=== PATIENT | male | born 1950 | race Caucasian/White ===

== ENCOUNTER 2018-02-05 15:38 | Emergency (ER) | payer MEDICARE, BC, SELFPAY ==
[2018-02-05] VITALS (7 sets, daily range): BP systolic 117–138; BP diastolic 68–86; PULSE 59–84; RESP 9–18; TEMP 36.1; O2SAT 95–99; BMI 34.5
--- NOTE | 2018-02-05 15:58 | ED.WEAKNESS ---
HPI - Weakness General Chief complaint: Weakness Stated complaint: Wants to make sure he isnt having a heart attack Time Seen by Provider: 02/05/18 15:57 Source: patient Mode of arrival: ambulatory Limitations: no limitations History of Present Illness HPI Narrative: 67-year-old male who is a [id number]-[id number] diabetic here for evaluation of not feeling well. 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 He states that he went to wash his car and as he was finishing washing his car he had vague symptoms of lightheadedness, headache flushing diaphoresis and nausea. States that he went inside and laid down and slept for several hours and when he woke up many of the symptoms had improved except he still did not feel very well. Denies any chest pain or shortness of breath. Came into the emergency department for evaluation Related Data Home Medications Medication Instructions Recorded Confirmed ASPIRIN (Aspirin) 324 mg PO Q DAY #0 06/08/10 CHOLECALCIFEROL (VITAMIN D3) #0 06/08/10 (Vitamin D3) MULTIVITAMIN/MINERALS (Thera M 0 PO Q DAY #0 06/08/10 Plus Tablet) [GLUCOSOMINE] #0 06/08/10 [SAW PALMETTO] #0 06/08/10 acetaminophen [Acephen] #0 01/26/17 atorvastatin [Lipitor] 20 mg PO QDAY #0 01/26/17 lisinopril 2.5 mg PO QDAY #0 01/26/17 metformin [Glucophage XR] 500 mg PO QDAY #0 01/26/17 Allergies Allergy/AdvReac Type Severity Reaction Status Date / Time INGREDIENT: NKDA - NO KNOWN Allergy Unknown Uncoded 02/05/18 15:45 DRUG ALLERGIES Review of Systems Constitutional Denies chills, Denies fever(s), Reports headache(s), Denies lethargy and Denies weakness Comments: Sweating Eyes Denies loss of vision ENT Ears, Nose, Mouth, and Throat: Reports headache(s) Cardiovascular Denies chest pain, Denies irregular heart rhythm, Denies lightheadedness, Denies palpitations, Denies dyspnea, Denies dyspnea on exertion and Denies orthopnea Respiratory Denies cough, Denies dyspnea, Denies dyspnea on exertion and Denies wheezing Gastrointestinal Gastrointestinal: Denies abdominal pain, Denies change in bowel habits, Denies diarrhea, Reports nausea and Denies vomiting Musculoskeletal Denies abnormal gait, Denies back pain, Denies muscle weakness, Denies numbness and Denies tingling Integumentary/Breasts Denies pruritus, Denies erythema, Denies rash and Denies wounds Comments: Flushing of the skin Neurologic Denies abnormal gait, Reports headache(s), Denies focal weakness, Denies loss of vision, Denies numbness, Denies tingling and Denies weakness Endocrine Denies palpitations Hematologic/Lymphatic Denies easy bruising Allergic/Immunologic Denies wheezing Exam Const General: cooperative, well developed and No diaphoretic Nutritional Appearance: well nourished and not cachectic Orientation: alert, awake, oriented x3 and not confused Chest Chest: normal inspection of the chest Resp Effort & Inspection: normal respiratory effort, able to speak in complete sentences, no respiratory distress and no use of accessory muscles Auscultation: clear to auscultation bilaterally, no rales, no rhonchi and no wheezes Cardio Rate: regular rate Rhythm: regular rhythm Heart Sounds: no click, no gallops, no murmurs and no rubs Pulses: normal peripheral pulses GI Inspection: non-distended Palpation: soft, no hepatosplenomegaly, No guarding, No pulsatile mass and No tender Auscultation: normal bowel sounds Skin General: no rashes or lesions noted, No jaundice and No petechiae Neuro General: alert, oriented x3, gait normal and no focal motor deficits Speech: speech normal Motor: strength 5/5 throughout Sensory Exam: no sensory deficits noted Extrem General: full ROM, no clubbing, cyanosis or edema, no pedal edema and no calf tenderness MDM - Weakness MDM Narrative Medical decision making narrative: Patient never complained of chest pain. His symptoms were somewhat consistent with a heat injury however was afebrile at the time of arrival. We do not have a temperature at the time when he was at his peak symptoms outside. It was cool this morning when he was working. He states that he did not feel like he overheated. He did take an aspirin prior to arrival. EKG not consistent with ST-elevation IA. Initial troponin was negative. Chest x-ray was negative. Given his history of diabetes and his nonspecific symptoms discussed with the patient the importance of keeping here in the emergency department and doing a repeat troponin. He expressed understanding and agreement. Turn case over to night provider at 1845 to follow up with troponin. Lab Data Attestation: I reviewed the patient's lab results. Result diagrams: 02/05/18 16:35 02/05/18 16:35 Lab Results 02/05/18 02/05/18 Range/Units 16:35 16:35 WBC 5.9 (4.5-11.0) X10^3/uL RBC 4.96 (4.5-5.9) X10^6/uL Hgb 15.7 (13.5-17.5) g/dL Hct 42.9 (41-53) % MCV 86.4 (80-100) fL MCH 31.6 (26-34) PG MCHC 36.5 H (30-36) % RDW 13.8 (11.6-14.8) % Plt Count 167 (150-400) X10^3/uL Neut % (Auto) 68.9 (50-75) % Lymph % (Auto) 22.4 L (25-40) % [place] % (Auto) 5.4 (3-14) % Eos % (Auto) 2.1 (2-4) % Baso % (Auto) 1.2 (0-2) % Neut # (Auto) 4100 (3653-0328) /uL Sodium 140 (137-145) mmol/L Potassium 4.5 (3.4-5.1) mmol/L Chloride 105.0 (98-107) mmol/L Carbon Dioxide 21.0 L (22-32) mmol/L BUN 20.0 (9-20) mg/dL Creatinine 0.90 (0.66-1.25) mg/dL Estimated GFR > 60.0 (>60) mL/min BUN/Creatinine Ratio 22.2 H (6-22) Glucose 176 H (80-110) mg/dL Calcium 9.3 (8.4-10.2) mg/dL Troponin I < 0.012 (0.01-0.034) ng/mL Imaging Data Chest x-ray: Radiologist's impression: PROCEDURE: XR CHEST 1V INDICATIONS: Chest pain TECHNIQUE: One view of the chest was acquired. COMPARISON: None. FINDINGS: Surgical changes and devices: None. Lungs and pleura: No pleural effusions or pneumothorax. There are linear opacities in the left base likely representing atelectasis. Mediastinum: Mediastinal contours appear normal. Heart size is normal. Bones and chest wall: No suspicious bony lesions. Overlying soft tissues appear unremarkable. IMPRESSION: 1. Probable linear atelectasis in the left base and less likely developing consolidation. Dictated by: Aman Watkins M.D. on 02/05/2018 at 16:47 ECG Data Interpretation: Time 1545 hr Sinus rhythm First degree AV block Ventricular rate 81 As needed oval 2-4 milliseconds Normal QRS Normal axis Incomplete right bundle branch block No ST T wave changes Course Orders Ordered: ED Orders 02/05/18 16:29 XR chest 1V Stat 02/05/18 16:35 Basic Metabolic Panel Stat Complete Blood Count AUTO DIFF Stat Troponin I Stat 02/05/18 19:15 Troponin I Stat Discontinued Medications Sodium Chloride (Normal Saline 0.9%) 1,000 mls @ 1,000 mls/hr IV BOLUS ONE Stop: 02/05/18 16:56 Last Infusion: 02/05/18 18:11 Dose: 0 mls/hr Admin: 02/05/18 16:46 Dose: 1,000 mls/hr Ondansetron HCl (Zofran) 4 mg IV NOW ONE Stop: 02/05/18 18:57 Last Admin: 02/05/18 19:00 Dose: 4 mg Last Vital Signs Temp 97.0 F L 02/05/18 15:43 Pulse 64 02/05/18 19:09 Resp 16 02/05/18 19:09 BP 132/68 H 02/05/18 19:09 Pulse Ox 95 02/05/18 19:09 Discharge Plan Departure Prescriptions: No Action ASPIRIN (Aspirin) 324 mg PO Q DAY Qty: 0 RF: 0 CHOLECALCIFEROL (VITAMIN D3) (Vitamin D3) Qty: 0 RF: 0 MULTIVITAMIN/MINERALS (Thera M Plus Tablet) PO Q DAY Qty: 0 RF: 0 [GLUCOSOMINE] Qty: 0 RF: 0 [SAW PALMETTO] Qty: 0 RF: 0 metformin [Glucophage XR] 500 MG tablet extended release 24 hr 500 mg PO QDAY Qty: 0 RF: 0 lisinopril 2.5 MG tablet 2.5 mg PO QDAY Qty: 0 RF: 0 acetaminophen [Acephen] 325 MG suppository Qty: 0 RF: 0 atorvastatin [Lipitor] 20 MG tablet 20 mg PO QDAY Qty: 0 RF: 0
--- NOTE | 2018-02-05 16:29 | DI.RAD.S_ITS ---
PROCEDURE: XR CHEST 1V INDICATIONS: Chest pain TECHNIQUE: One view of the chest was acquired. COMPARISON: None. FINDINGS: Surgical changes and devices: None. Lungs and pleura: No pleural effusions or pneumothorax. There are linear opacities in the left base likely representing atelectasis. Mediastinum: Mediastinal contours appear normal. Heart size is normal. Bones and chest wall: No suspicious bony lesions. Overlying soft tissues appear unremarkable. IMPRESSION: 1. Probable linear atelectasis in the left base and less likely developing consolidation. Dictated by: Aman Watkins M.D. on 02/05/2018 at 16:47 Approved by: Aman Watkins M.D. on 02/05/2018 at 16:48
[2018-02-05] MEDS: SODIUM CHLORIDE 0.9% 1,000 ML 1000 ML IV (16:46)
[2018-02-05 17:01] LABS: BUN Creatinine Ratio 22.2 (6-22); Calcium 9.3 mg/dL (8.4-10.2); Estimated Glomerular Filt Rate > 60.0 mL/min (>60); Glucose 176 mg/dL (80-110); HEMOLYSIS < 15 (0-50); Potassium 4.5 mmol/L (3.4-5.1); Sodium 140 mmol/L (137-145)
[2018-02-05 17:07] LABS: Add Manual Diff / Slide Review NO; Basophils Percent Auto 1.2 % (0-2); Eosinophils Percent Auto 2.1 % (2-4); Hematocrit 42.9 % (41-53); Hemoglobin 15.7 g/dL (13.5-17.5); Lymphocytes Percent Auto 22.4 % (25-40); Mean Corpuscular HGB Conc 36.5 % (30-36); Mean Corpuscular Hemoglobin 31.6 PG (26-34); Mean Corpuscular Volume 86.4 fL (80-100); Monocytes Percent Auto 5.4 % (3-14); Neutrophils Absolute Auto 4100 /uL (3000-5900); Neutrophils Percent Auto 68.9 % (50-75); Platelet Count 167 X10^3/uL (150-400); Red Blood Cell Count 4.96 X10^6/uL (4.5-5.9); Red Cell Distribution Width 13.8 % (11.6-14.8); White Blood Cell Count 5.9 X10^3/uL (4.5-11.0)
[2018-02-05 17:14] LABS: Troponin I < 0.012 ng/mL (0.01-0.034)
[2018-02-05] MEDS: ONDANSETRON 4 MG/2 ML INJ IV (19:00)
[2018-02-05 20:18] LABS: Troponin I < 0.012 ng/mL (0.01-0.034)
== END 2018-02-05 20:45 | disposition home or self-care (01) ==
PROVIDERS: Emergency Medicine; Emergency Provider Emergency Medicine
DX: R10.9 Unspecified abdominal pain (principal); R42 Dizziness and giddiness
CPT/HCPCS: 36415; 36591; 71045; 80048; 84484; 85025; 93005; 96361; 96374; 99283; 99285; J2405

== ENCOUNTER → 2022-10-02 09:11 | Outpatient (CLI) | payer MEDICARE, BC, SELFPAY ==
[2022-10-02 12:38] LABS: COVID19 -Nasal RAPID Negative (Negative)
== END ==
PROVIDERS: Visit Provider Surgery
DX: Z01.812 Encounter for preprocedural laboratory examination (principal); Z20.822 Contact with and (suspected) exposure to COVID-19
CPT/HCPCS: 87635; C9803

== ENCOUNTER 2022-10-03 08:03 | Day surgery (SDC) | payer MEDICARE, BC, SELFPAY ==
--- NOTE | 2022-10-03 | PATH_ITS ---
[facility] Accession Number: [id number] . 01 Material submitted: . colon - ASCENDING COLON . 01 Diagnosis: Ascending Colon, Biopsy: Benign ganglioneuroma. Additional levels were examined. Negative for atypia, epithelial dysplasia and malignancy. MRV 10/06/2022 1439 Local . 01 Electronically signed: . Ramya Ceron MD, Pathologist NPI- [id number] . 01 Gross description: . ASCENDING COLON: Received in formalin is 1 fragment(s) of pollock, soft tissue measuring 0.4 x 0.2 x 0.1 cm submitted entirely in 1 cassette(s) /CPE 10/04/2022 0937 Local . 01 Pathologist provided ICD-10: K63.5 . 01 CPT . 495452 Specimen Comment: A courtesy copy of this report has been sent to [phone] Performed at: 01 [facility] [address] [place] [address] [address] [facility], [place], [place] [id number] MD Aman Omalley MD Phone: [phone]
[2022-10-03 08:27] VITALS: BP 113/78; PULSE 71; RESP 16; TEMP 35.9; O2SAT 98; BMI 28.6
[2022-10-03] MEDS: LACTATED RINGERS 1,000 ML 200 ML IV (08:27)
--- NOTE | 2022-10-03 09:17 | PM.HP.1 ---
History of Present Illness History of Present Illness Date Patient Seen: 10/03/22 Time Patient Seen: 09:17 Chief complaint: SCREENING COLONOSCOPY Narrative: The patient presents for colorectal screening. His personal history of colonic polyps, last colonoscopy 5-6 years ago. No personal or family history of colon cancer. On further history denies any recent gastrointestinal symptoms. No nausea, vomiting, abdominal pain, loss of appetite, unexplained weight loss, change in bowel habits, or blood per rectum. Patient History Family & Social History Social History: household members spouse Tobacco & Substance use: Smoking Status Never smoker alcohol intake current alcohol intake frequency a few times a week Substance Use Type does not use Meds Home Medications and Allergies Home Medications Medication Instructions Recorded Confirmed Type CHOLECALCIFEROL (VITAMIN D3) ##0 06/08/10 History (Vitamin D3) MULTIVITAMIN/MINERALS (Thera M 0 PO Q DAY ##0 06/08/10 History Plus Tablet) [GLUCOSOMINE] ##0 06/08/10 History [SAW PALMETTO] ##0 06/08/10 History atorvastatin 20 mg tablet (Lipitor) 20 mg PO QDAY ##0 01/26/17 10/03/22 History metformin 500 mg tablet,extended 500 mg PO QDAY ##0 01/26/17 10/03/22 History release 24 hr (Glucophage XR) rivaroxaban 20 mg tablet (Xarelto) 20 mg PO 10/02/22 History metoprolol succinate 100 mg PO 3XD 10/03/22 10/03/22 History Allergies Allergy/AdvReac Type Severity Reaction Status Date / Time No Known Drug Allergies Allergy Verified 10/03/22 08:20 Exam Vital Signs (past 8 hours): - 10/03/22 08:27 Temperature 96.7 F L Pulse Rate 71 Respiratory Rate 16 Blood Pressure 113/78 Pulse Oximetry 98 Oxygen Delivery Method Room Air Oxygen Delivery Method Room Air Narrative Exam Narrative: General adult male alert oriented no acute distress Abdomen soft nontender nondistended Assessment & Plan Assessment & Plan narrative: The patient requires colorectal screening and colonoscopy is recommended. Technical details were discussed. Risks, benefits, alternatives explained. Risks including but not limited to myocardial infarction, aspiration, bleeding, pain, missed lesion, incomplete examination, need for further radiographic studies, colonic perforation, and need for major abdominal surgery were discussed. All questions were answered to their satisfaction, and they are in agreement with this plan. Time Spent With Patient Critical Care time: I spent a total of [] minutes of critical care time on this patient's care today; this time is exclusive of procedural time.
--- NOTE | 2022-10-03 09:24 | PM.OP.COLON ---
Operative Date/Time/Diagnoses Date of procedure: 10/03/22 Time of procedure: 09:24 Pre-op diagnosis: Personal history of colonic polyps Post-op diagnosis: same Procedure & Clinicians Study performed: Colonoscopy Same procedure as scheduled: Yes Indications: Personal history of colonic polyps Surgeon: Papito Isbell Procedure Notes Procedure in detail: The history and physical was performed/updated and the patient is ASA class is 3. The procedure was discussed in detail with the patient. Potential risks complications including infection, bleeding, missed diagnosis, perforation, need for surgery, and were explained. Their questions were answered and informed consent was obtained. Patient was brought to the procedure room and placed standard monitoring equipment. The patient's vital signs were monitored continuously throughout the entire procedure. Prior to starting time-out was performed. The patient was placed in the left lateral recumbent position. Procedural sedation was administered by anesthesia. Examination began with a thorough inspection of the perianal area there was no evidence of fissures, fistulae, external hemorrhoids or cutaneous malignancy. The colonoscopy scope was then placed into the anal canal and was advanced to the cecum, which was identified by the ileocecal valve, the appendiceal orifice and the confluence of the taenia. The scope was then slowly withdrawn examining colon thoroughly in all directions, irrigating it of any residual stool. FINDINGS 1. Ascending colon 5 mm polyp removed with Jumbo forceps 2. Sigmoid extensive diverticulosis 3. Internal hemorrhoids The patient tolerated the procedure well. They will be discharged once criteria are met. The prep was of good/excellent quality. The withdrawl time was 6 minutes. Specimen(s): other (Ascending colon polyp) Impression: Colonic polyp Post-procedure Recommendations: High fiber diet Plan for aftercare: Follow-up dependent on pathology findings Disposition: same day surgery
[2022-10-03 09:51] VITALS: BP 103/70; PULSE 63; RESP 17; TEMP 36.6; O2SAT 94
[2022-10-03 09:56] VITALS: BP 107/72; PULSE 61; RESP 15; O2SAT 95
[2022-10-03 10:01] VITALS: BP 108/70; PULSE 70; RESP 15; TEMP 36.8; O2SAT 97
[2022-10-03 10:09] VITALS: BP 114/79; PULSE 66; RESP 13; TEMP 36.1; O2SAT 99
== END 2022-10-03 10:21 | disposition home or self-care (01) ==
PROVIDERS: Referring Provider Surgery; Visit Provider Surgery
PROC: 0DJD8ZZ Inspection of Lower Intestinal Tract, Via Natural or Artificial Opening Endoscopic (ICD-10-PCS; CPT 45378; principal; 2022-10-03 09:15)
DX: Z12.11 Encounter for screening for malignant neoplasm of colon (principal); Z86.010 Personal history of colon polyps; K57.30 Diverticulosis of large intestine without perforation or abscess without bleeding; K64.8 Other hemorrhoids; K63.5 Polyp of colon
CPT/HCPCS: 45380; J2704